=== PATIENT | male | born 1990 | race Caucasian/White ===

== ENCOUNTER 2022-06-14 16:37 | Emergency (ER) | payer OTHER ==
[2022-06-14 17:45] VITALS: BP 126/79; PULSE 93; RESP 16; TEMP 98.2; BMI 24.8
== END 2022-06-14 19:05 | disposition home or self-care (01) ==
LOC: JERFT 16:37 → JER 16:37 → JERFT 19:05
DX: K40.90 Unilateral inguinal hernia, without obstruction or gangrene, not specified as recurrent (principal)
CPT/HCPCS: 99281-25

== ENCOUNTER 2025-01-23 23:05 | Emergency (ER) | payer OTHER ==
[2025-01-23 23:12] VITALS: RESP 18; TEMP 98.3; BMI 25.7
[2025-01-23] MEDS: SODIUM CHLORIDE 0.9% 500 ML INFUS.BAG IV ONE (23:48)
[2025-01-23 23:55] LABS: ABSOLUTE IMMATURE GRANULOCYTES 0.03 x10^3/uL (0.0-0.031); BASOPHILS # 0.06 x10^3/uL (0.01-0.08); BG HCT 50.0 % (35.4-49); EOSINOPHIL % 1.3 % (0.8-7.0); EOSINOPHILS # 0.14 x10^3/uL (0.04-0.54); MCHC 32.3 g/dl (32.3-36.5); MEAN CELL VOLUME 83.5 fl (79.0-92.2); MEAN PLT VOLUME 10.4 fl (9.4-12.4); MONOCYTE # 0.92 x10^3/uL (0.30-0.82); MONOCYTE % 8.6 % (5.3-12.2); RDW 11.7 % (12.0-15.6); VENOUS BASE EXCESS 1.3 mmol/L (-2-2); VENOUS O2 SATURATION 55.8 % (70-80); VENOUS PCO2 48.7 mmHg (38-52); VENOUS PH 7.37 (7.310-7.410)
[2025-01-24 00:24] LABS: CO2 30.0 mmol/L (21-32); GLUCOSE,RANDOM 334.0 mg/dL (74-106)
[2025-01-24 00:27] LABS: CREATININE 1.0 mg/dL (0.55-1.3); SGOT/AST 12.0 U/L (15-37); SGPT/ALT 30.0 U/L (13-61)
[2025-01-24 00:29] LABS: TOT PROT 8.2 g/dl (6.4-8.2)
[2025-01-24 00:30] LABS: ALK PHOS 113.0 U/L (45-117)
[2025-01-24 01:26] LABS: URINE APPEARANCE TURBID; URINE BILIRUBIN NEGATIVE (NEGATIVE); URINE COLOR YELLOW; URINE GLUCOSE (UA) >1000 mg/dl (NEGATIVE); URINE KETONE TRACE (NEGATIVE)
[2025-01-24 01:27] LABS: URINE LEUK ESTERASE 3+ (NEGATIVE); URINE NITRITE NEGATIVE (NEGATIVE); URINE PROTEIN 300 (NEGATIVE); URINE UROBILINOGEN 1.0 mg/dL (0.2-1.0)
[2025-01-24] MEDS: SODIUM CHLORIDE 0.9% 500 ML INFUS.BAG IV ONE (01:59)
[2025-01-24] MEDS ORDERED: INSULIN ASPART SLIDING SCALE (NOVOLOG) 1 VIAL SQ ONE (02:40)
[2025-01-24] MEDS: INSULIN (NOVOLOG) ASPART 100 UNITS/ML 10ML VIAL SQ ONE (02:44)
[2025-01-24 04:53] VITALS: BP 104/72; PULSE 74
[2025-01-24 06:05] LABS: HIV INTERPRETATION NEGATIVE (NEGATIVE)
[2025-01-24 06:06] LABS: HCV DIAGNOSTIC IN-HOUSE W/RFLX NON-REACTIVE (NONREACTIVE)
== END 2025-01-24 04:53 | disposition home or self-care (01) ==
LOC: JER 23:05
PROC: 3E02329 Introduction of Other Anti-infective into Muscle, Percutaneous Approach (ICD-10-PCS; principal; 2025-01-24)
PROC: 3E013VG Introduction of Insulin into Subcutaneous Tissue, Percutaneous Approach (ICD-10-PCS; 2025-01-24)
DX: R31.9 Hematuria, unspecified (principal); R30.0 Dysuria; R36.9 Urethral discharge, unspecified; E11.65 Type 2 diabetes mellitus with hyperglycemia
CPT/HCPCS: 36415; 80053; 81003; 82010; 82550; 82553; 82803; 82962; 85025; 86803; 87086; 87389; 87491; 87591; 99284-25